=== PATIENT | female | born 1970 | race Two or more races ===

== ENCOUNTER 2016-09-03 07:00 | Inpatient (IN) | payer OTHER ==
--- NOTE | 2016-08-29 06:06 | PREOPHP ---
DATE OF ADMISSION: 09/03/[address] Pérez: HISTORY OF PRESENT ILLNESS: Thank you for asking me to see this pleasant 45-year-old woman who is c oming into the hospital for an anterior cervical disk surgery on 09/03/2016. The patient has had pr ogressive problems with pain, loss of range of motion, and discomfort in her neck as well as tinglin g in her arm. PAST MEDICAL HISTORY: Otherwise unremarkable. ALLERGIES: THERE NO ALLERGIES OTHER THAN INTOLERANCE OF MORPHINE. FAMILY HISTORY: The patient is with 4 grown children and 2 younger children. 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 PAST SURGICAL HISTORY: Includes only tubal ligation. HABITS: No cigarettes. No significant alcohol. REVIEW OF SYSTEMS: On questioning all pertinent review of systems are negative, except for the neck symptoms as noted above. GYNECOLOGIC HISTORY: Her periods are regular. Her last period was 2 weeks ago and as noted, she wallace d a tubal ligation. PHYSICAL EXAMINATION: GENERAL: She is a pleasant woman in no acute distress. She is 5 foot 3 inches tall, 143 pounds wit h a BMI of 25. VITAL SIGNS: Blood pressure 120/70, pulse is 64 and regular. She is afebrile. HEAD, EARS, EYES, NOSE, AND THROAT: No signs of trauma. Some pain on range of motion, especially l aterally of her neck. Ear, nose, and throat are unremarkable. NECK: Thyroid enlargement is appreciated. CHEST: Sounds clear to percussion and auscultation. HEART: Tones regular. No murmurs. ABDOMEN: Soft, without palpable mass or tenderness. EXTREMITIES: No clubbing, cyanosis, edema. Good peripheral pulses. All joints move well except fo r the neck. INITIAL IMPRESSION: Cervical disk disorder. DISCUSSION: At this time, there appear to be no medical contraindications to proceeding with surger y as planned. Laboratory reports, electrocardiogram, and chest x-ray are unremarkable. Electrolyte s are normal except for borderline potassium of 3.5. The patient will be called and instructed on i ncreasing her fruit intake. There are some nonspecific findings on her urinalysis with some blood, so there may be some local issues there. We can repeat the urinalysis as well. PT and PTT are norm al. Thank you for asking us to see her at this time. Dictated By: ERLIN WILLOUGHBY MD, SR/PIA Conf#: [id number] DID#: [id number]
[2016-08-30 17:01] VITALS: BMI 26.6; BMI 58.6
[~2016-09-03] VITALS: Ht 162.6 cm; Wt 71.0 kg
[2016-09-03] VITALS (25 sets, daily range): BP systolic 103–133; BP diastolic 51–83; PULSE 55–118; RESP 16–20; Ht 162.6 cm; Wt 71.0 kg
[~2016-09-03 07:00] MED LIST: CEFAZOLIN 1 GM INJ ONE; CEFAZOLIN 2 GM/50 ML (PMX) 50 ML IVPB SCH; LACTATED RINGER'S 1,000 ML IV* SCH; ONDANSETRON 4 MG INJ ONE
[2016-09-03] MEDS ORDERED: INHALER (09:10)
--- NOTE | 2016-09-03 10:36 | HPN ---
Date/Time of Note Date/Time of Note DATE: 09/03/16 TIME: 10:36 Interval H&P Admission Note Pt. seen H&P reviewed: No system changes KIRSTY MIRANDA MD September 03, 2016 10:36
[2016-09-03] MEDS ORDERED: MIDAZOLAM 1 MG/ML 2 ML INJ ONE (10:57)
[2016-09-03] MEDS ORDERED: ONDANSETRON 4 MG INJ IV PRN ×2 (11:00→12:30)
[2016-09-03] MEDS ORDERED: BISACODYL 10 MG SUPP PR PRN (11:00)
[2016-09-03] MEDS ORDERED: ZOLPIDEM 5 MG TAB PO PRN (11:00)
[2016-09-03] MEDS ORDERED: HYDROmorphONE 1 MG/ML SYG IV PRN (11:00)
[2016-09-03] MEDS ORDERED: HYDROmorphONE 0.2 MG/ML PCA IV SCH (11:00)
[2016-09-03] MEDS ORDERED: NALOXONE (0.4 MG/ML) INJ IV PRN (11:00)
[2016-09-03] MEDS ORDERED: AL HYDROX/MG HYDROX/SIMETH 30 ML CUP PO PRN (11:00)
[2016-09-03] MEDS ORDERED: DIPHENHYDRAMINE 50 MG INJ IV PRN ×2 (11:00→12:30)
[2016-09-03] MEDS ORDERED: HYDROCODONE/APAP (10/325) TAB PO PRN ×2 (11:00)
[2016-09-03] MEDS ORDERED: SURGIFOAM POWDER 1 GM KIT ONE (11:04)
[2016-09-03] MEDS ORDERED: THROMBIN 5000 UNIT VIAL ONE (11:05)
[2016-09-03] MEDS ORDERED: BUPIVACAINE 0.25%/EPI (SDV) 30 ML INJ ONE (11:05)
[2016-09-03] MEDS ORDERED: POLYMYXIN/BACITRACIN 1L IRRIG IRR ONE (11:23)
[2016-09-03] MEDS ORDERED: BUPIVACAINE 0.25%/EPI (SDV) 30 ML INJ INJ ONE (11:23)
[2016-09-03] MEDS ORDERED: THROMBIN 5000 UNIT VIAL TOP ONE (11:23)
[2016-09-03] MEDS ORDERED: MEPERIDINE 25 MG INJ IV PRN (12:30)
[2016-09-03] MEDS ORDERED: FENTAnyl 50 MCG/ML VIAL IV PRN (12:30)
[2016-09-03] MEDS ORDERED: LIDOCAINE 2% (SDV) 5 ML INJ ONE (13:08)
[2016-09-03] MEDS ORDERED: ROCURONIUM 50 MG INJ ONE (13:08)
[2016-09-03] MEDS ORDERED: NEOSTIGMINE 3 MG/3 ML SYRINGE ONE (13:08)
[2016-09-03] MEDS ORDERED: PROPOFOL 20 ML ONE (13:08)
[2016-09-03] MEDS ORDERED: GLYCOPYRROLATE 1 MG INJ ONE (13:08)
--- NOTE | 2016-09-03 13:32 | RADRPT ---
PROCEDURE: Intraoperative fluoroscopy. CLINICAL INDICATION: Intraoperative fluoroscopy during C5-6 decompression. TECHNIQUE: 5 spot intraoperative fluoroscopic images were provided. The images were reviewed on a high-resolution PACS workstation. COMPARISON: None available FINDINGS: Multiple spot intraoperative fluoroscopic views were provided during C5-6 decompression. The images demonstrate additional metallic probe at the level of C5-6. There is subsequent placement of cervi olesya discs replacement. The total fluoroscopy time was 37.9 seconds. IMPRESSION: 1. Multiple spot intraoperative fluoroscopic views during C5-6 decompression were provided. 2. Please see operative report of the same day for further information. RPTAT: HGAS .Jim Willoughby MD, Date Time Electronically viewed and signed by .Jim Willoughby MD, MD on 09/03/2016 13:32 .S/
[2016-09-03] MEDS: CEFAZOLIN 1 GM/50 ML (PMX) 50 ML IVPB SCH ×2 (14:48→23:23)
[2016-09-03] MEDS: D5W-0.45 NACL + KCL 20 MEQ 1,000 ML IV SCH ×2 (14:48→20:31)
[2016-09-03] MEDS ORDERED: VITAMIN A & D 5 GM OINT PACKET TOP ONE (16:04)
--- NOTE | 2016-09-03 18:19 | CONS ---
Date/Time of Note Date/Time of Note DATE: 09/03/16 TIME: 18:17 Assessment/Plan Assessment/Plan Problems: (1) Status post cervical spinal fusion Status: Acute Comment: The patient is resting comfortably after surgery. There does not appear to be any untoward effects or complications postoperatively. Will follow her along expectantly. Consultation Date/Type/Reason Admit Date/Time September 03, 2016 at 07:00 Initial Consult Date 09/03/2016 Type of Consultation: Internal medicine Reason for Consultation Postoperative assistance after cervical spine microdiscectomy Referring Provider: KIRSTY MIRANDA MD 24 HR Interval Summary Free Text/Dictation Patient reports she is doing well. She denies any shortness of breath fevers chills or sweats chest pain palpitations and specifically denies any upper extremity symptoms or lower extremity symptoms. Constitutional: no complaints Detailed Summary Respiratory: no complaints Cardiovascular: no complaints Gastrointestinal: no complaints Genitourinary: no complaints Neurologic: no complaints Exam/Review of Systems Vital Signs Vitals Vital Signs Date Time Temp Pulse Resp B/P Pulse Ox O2 Delivery O2 Flow Rate FiO2 09/03/16 17:25 68 121/68 100 Room Air 09/03/16 17:01 16 09/03/16 14:40 97.9 Exam Constitutional: alert, oriented Respiratory: clear to auscultation, normal air movement Cardiovascular: nl pulses, regular rate and rhythm Gastrointestinal: nl liver, spleen, non-tender, soft Musculoskeletal: nl extremities to inspection Extremities: normal pulses Medications Medications Current Medications Lactated Ringer's 1,000 ml @ 20 mls/hr Q24H IV* ; Start 09/03/16 at 07:00; Stop 09/05/16 at 08:59 Potassium Chloride/Dextrose/ Sod Cl (D5-1/2ns + KCl 20 Meq) 1,000 ml @ 100 mls/ hr Q10H IV Last administered on 09/03/16t 14:48; Admin Dose 100 MLS/HR; Start 09/03/16 at 10:31 Acetaminophen/ Hydrocodone Bitart ([place] (10/325)) 1 tab Q4H PRN PO PAIN LEVEL 1-5; Start 09/03/16 at 11:00 Acetaminophen/ Hydrocodone Bitart ([place] (10/325)) 2 tab Q4H PRN PO PAIN LEVEL 6-10; Start 09/03/16 at 11:00 Hydromorphone HCl 0.2 mg 0.2 mg Q1H PRN IV BREAKTHROUGH PAIN; Start 09/03/16 at 11:00 Cefazolin Sodium (Ancef 1 Gm/50 ml (Pmx)) 50 ml @ 100 mls/hr Q8H IVPB Last administered on 09/03/16 14:48; Admin Dose 100 MLS/HR; Start 09/03/16 at 15:00 ; Stop 09/04/16 at 07:29 Ondansetron HCl (Zofran Inj) 4 mg Q6H PRN IV NAUSEA AND/OR VOMITING; Start at 11:00 Bisacodyl (Dulcolax Supp) 10 mg DAILY PRN [place] CONSTIPATION; Start 09/03/16 at 11 :00 Docusate Sodium (Colace) 100 mg BID PO ; Start 09/03/16 at 21:00 Al Hydrox/Mg Hydrox/Simethicone (Mag-Al Plus) 15 ml Q6H PRN PO CONSTIPATION/ DYSPEPSIA; Start 09/03/16 at 11:00 Acetaminophen (Tylenol Tab) 650 mg Q4H PRN PO MODI OR TEMP GREATER THAN 101.3F; Start 09/03/16 at 11:00 Cyclobenzaprine HCl (Flexeril) 10 mg TID PRN PO MUSCLE SPASMS; Start 09/03/16 at 11:00 Phenol (Cepastat Lozenge) 1 lozenge PRN PRN MT SORE THROAT; Start 09/03/16 at 11:00 Diphenhydramine HCl (Benadryl) 25 mg Q6H PRN IV ITCHING; Start 09/03/16 at 11: 00 Naloxone HCl (Narcan) 0.2 mg Q2M PRN IV RR 8 BREATHS/MIN OR LESS; Start at 11:00 Hydromorphone HCl (Dilaudid DISH UP PERSON) DISH UP PERSON to be started in PACU Q4PCA IV Last administered on 09/03/16 13:31; Admin Dose 6 MG; Start 09/03/16 at 11:00; Stop 09/04/16 at 10:00 Miscellaneous Information 1. Hold DISH UP PERSON at 1,000... DISH UP PERSON IV ; Start 09/03/16 at 11: 00 OMAR SMITH MD September 03, 2016 18:19
[2016-09-03] MEDS: DOCUSATE SODIUM 100 MG CAP PO SCH (21:08)
[2016-09-03] MEDS: CYCLOBENZAPRINE 10 MG TAB PO PRN (21:08)
[2016-09-03] MEDS: CEPASTAT LOZENGE MT PRN (21:08)
[2016-09-03] MEDS ORDERED: HYDROmorphONE 1 MG/ML SYG IV STA (23:09)
--- NOTE | 2016-09-03 23:58 | EN ---
Date/Time of Note Date/Time of Note DATE: 09/03/16 TIME: 23:58 Event Note Medicine Medicine Event Note COILER OPERATOR called at approximately 22: 50. Patient seen and examined at the bedside. As per the nurse patient was using the bathroom and upon going from seated to standing position from the toilet patient began to become unstable and dizzy with her head and neck leaning back. Patient was brought to the bed. Her vital signs remained stable. Patient was on Dilaudid CORE INSPECTOR as well as she did receive Flexeril as well. She was not wearing her neck collar going to the bathroom. Upon arrival of the COILER OPERATOR team which included myself patient was seen laying in bed. Patient was arousable to verbal and vigorous tactile stimuli. Through the course of the COILER OPERATOR she was able to be more alert and be able to respond to her questions. She did state that she was in a lot of pain. The patient was able to move her bilateral upper and lower extremities and she did not experience or display any loss of sensation. Patient had undergone cervical neck surgery earlier in the day. To the course the COILER OPERATOR patient was able to communicate better and was more awake and alert. Likely her symptoms were secondary to Dilaudid and the muscle relaxant. She remained alert and oriented 3 and answering questions appropriately. CAT scan of the cervical cervical region of the neck was ordered to assess for any damage or misalignment of of her neck. Case was discussed with the nurse and nurse was to follow-up with the primary care doctor as well as the orthopedic surgeon once the results of the CAT scan of the abdomen came through. Patient's symptoms of dizziness likely are thought to be contributed to her narcotic medication as well as muscle relaxant. Of note patient's sodium was 165. The hydraulic rock drill operator was contacted regarding this value. At the current time no adjustments were recommended to be made to the IV fluids. DORA VILLANUEVA September 03, 2016 23:58
--- NOTE | 2016-09-04 01:36 | RADRPT ---
PROCEDURE: CT Cervical Spine without contrast. CLINICAL INDICATION: Neck pain, status post recent cervical spine surgery. TECHNIQUE: A CT of the cervical spine was performed without intravenous contrast. Coronal and sag ittal reformats were generated. CTDIvol: 22.41 mGy. DLP: 674.91 mGy-cm. One or more of the following dose reduction techniques were used: - Automated exposure control. - Adjustment of the mA and/or kV according to patient size. - Use of iterative reconstruction technique. COMPARISON: None. FINDINGS: There is a normal cervical lordosis. No spondylolisthesis is seen. The patient status post C5-C6 di scectomy. The disk prosthesis is in normal position. The vertebral body heights are maintained. No fracture or subluxation is seen. There is a 0.7 x 2.7 x 5.9 cm (AP by TR by CC) prevertebral fluid collection extending from the C2-C5 levels. There is a small to moderate amount of soft tissue air in the left neck. There is no significant degenerative change. No spinal canal stenosis or neural foraminal narrowing is seen. IMPRESSION: 1. Status post C5-C6 discectomy. There is anatomic alignment of the cervical spine and disk prosthe sis. 2. 0.7 x 2.7 x 5.9 cm prevertebral fluid collection extending from the C2-C5 levels. This probably represents benign postoperative fluid, however an abscess cannot be completely excluded. If there is concern for postoperative abscess, further evaluation with contrast enhanced neck MRI is recommende d. 3. Small to moderate amount of soft tissue air in the left neck, also likely postoperative. RPTAT: HTAR .Patrice Lelbanc MD, Date Time Electronically viewed and signed by .Patrice Leblanc MD, on 09/04/2016 01:36 .R/
[2016-09-04] MEDS: D5W-0.45 NACL + KCL 20 MEQ 1,000 ML IV SCH ×4 (02:04→23:15)
[2016-09-04 04:57] LABS: ADD SCAN DIFF NO
[2016-09-04 05:05] LABS: BASOPHILS % 0.2 % (0.0-2.0); EOSINOPHILS % 0.2 % (0.0-7.0); HEMATOCRIT 35.4 % (37.0-47.0); LYMPHOCYTES # 1.9 10^3/ul (0.8-2.9); LYMPHOCYTES % 15.6 % (15.0-51.0); MEAN CORPUSCULAR HEMOGLOBIN 28.6 pg (29.0-33.0); MEAN CORPUSCULAR HGB CONC 33.9 g/dl (32.0-37.0); MEAN CORPUSCULAR VOLUME 84.5 fl (82.0-101.0); MEAN PLATELET VOLUME 9.8 fl (7.4-10.4); MONOCYTE # 0.7 10^3/ul (0.3-0.9); MONOCYTES % 5.7 % (0.0-11.0); NEUTROPHIL # 9.5 10^3/ul (1.6-7.5); NEUTROPHILS % 77.9 % (39.0-77.0); PLATELET COUNT 237 10^3/UL (140-415); RED BLOOD COUNT 4.19 10^6/ul (4.20-5.40); WHITE BLOOD COUNT 12.2 10^3/ul (4.8-10.8)
[2016-09-04 05:46] LABS: CREATININE 0.6 mg/dl (0.44-1.00)
[2016-09-04 05:47] LABS: CALCIUM 8.2 mg/dl (8.4-10.2)
[2016-09-04 05:48] LABS: MAGNESIUM 1.7 mg/dl (1.7-2.5)
[2016-09-04] MEDS: CEFAZOLIN 1 GM/50 ML (PMX) 50 ML IVPB SCH (06:10)
[2016-09-04 08:00] VITALS: BP 118/56; RESP 18
--- NOTE | 2016-09-04 08:27 | PN ---
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 machine operator vs ok this am, labs ok lungs clear, hr ok, lower ext strength normal repeat labs in am, further rx per ortho Exam/Review of Systems Vital Signs Vitals Vital Signs Date Time Temp Pulse Resp B/P Pulse Ox O2 Delivery O2 Flow Rate FiO2 09/04/16 08:00 98.6 68 18 118/56 98 09/03/16 23:24 Nasal Cannula Intake and Output 09/03/16 09/03/16 09/04/16 15:00 23:00 07:00 Intake Total 900 ml 320 ml 1290 ml Output Total 25 ml 2400 ml Balance 875 ml 320 ml -1110 ml Results Result Diagram: 09/04/16 0430 09/04/16 0430 Results 24 hrs Laboratory Tests Test 09/03/16 22:57 09/04/16 04:30 Bedside Glucose 137 White Blood Count 12.2 H Red Blood Count 4.19 L Hemoglobin 12.0 Hematocrit 35.4 L Mean Corpuscular Volume 84.5 Mean Corpuscular Hemoglobin 28.6 L Mean Corpuscular Hemoglobin Concent 33.9 Red Cell Distribution Width 13.0 Platelet Count 237 Mean Platelet Volume 9.8 Neutrophils % 77.9 H Lymphocytes % 15.6 Monocytes % 5.7 Eosinophils % 0.2 Basophils % 0.2 Nucleated Red Blood Cells % 0.0 Neutrophils # 9.5 H Lymphocytes # 1.9 Monocytes # 0.7 Eosinophils # 0.0 Basophils # 0.0 Nucleated Red Blood Cells # 0.0 Sodium Level 139 Potassium Level 4.0 Chloride Level 110 Carbon Dioxide Level 26 Anion Gap 7 L Blood Urea Nitrogen 9 Creatinine 0.60 Glucose Level 120 Calcium Level 8.2 L Magnesium Level 1.7 Medications Medications Current Medications Lactated Ringer's 1,000 ml @ 20 mls/hr Q24H IV* ; Start 09/03/16 at 07:00; Stop 09/05/16 at 08:59 Potassium Chloride/Dextrose/ Sod Cl (D5-1/2ns + KCl 20 Meq) 1,000 ml @ 100 mls/ hr Q10H IV Last administered on 09/04/16 02:04; Admin Dose 100 MLS/HR; Start 09/03/16 at 10:31 Acetaminophen/ Hydrocodone Bitart ([place] (10/325)) 1 tab Q4H PRN PO PAIN LEVEL 1-5; Start 09/03/16 at 11:00 Acetaminophen/ Hydrocodone Bitart ([place] (10/325)) 2 tab Q4H PRN PO PAIN LEVEL 6-10; Start 09/03/16 at 11:00 Hydromorphone HCl (Dilaudid) 0.2 mg Q1H PRN IV BREAKTHROUGH PAIN; Start at 11:00 Ondansetron HCl (Zofran Inj) 4 mg Q6H PRN IV NAUSEA AND/OR VOMITING; Start at 11:00 Bisacodyl (Dulcolax Supp) 10 mg DAILY PRN [place] CONSTIPATION; Start 09/03/16 at 11 :00 Docusate Sodium (Colace) 100 mg BID PO Last administered on 09/03/16 21:08; Admin Dose 100 MG; Start 09/03/16 at 21:00 Al Hydrox/Mg Hydrox/Simethicone (Mag-Al Plus) 15 ml Q6H PRN PO CONSTIPATION/ DYSPEPSIA; Start 09/03/16 at 11:00 Acetaminophen (Tylenol Tab) 650 mg Q4H PRN PO MODI OR TEMP GREATER THAN 101.3F; Start 09/03/16 at 11:00 Cyclobenzaprine HCl (Flexeril) 10 mg TID PRN PO MUSCLE SPASMS Last administered on 09/03/16 21:08; Admin Dose 10 MG; Start 09/03/16 at 11:00 Phenol (Cepastat Lozenge) 1 lozenge PRN PRN MT SORE THROAT Last administered on 09/03/16 21:08; Admin Dose 1 LOZENGE; Start 09/03/16 at 11:00 Diphenhydramine HCl (Benadryl) 25 mg Q6H PRN IV ITCHING; Start 09/03/16 at 11: 00 Naloxone HCl (Narcan) 0.2 mg Q2M PRN IV RR 8 BREATHS/MIN OR LESS; Start at 11:00 Hydromorphone HCl (Dilaudid DOLL MAKER) DOLL MAKER to be started in PACU Q4PCA IV Last administered on 09/03/16t 13:31; Admin Dose 6 MG; Start 09/03/16 at 11:00; Stop 09/04/16 at 10:00 Miscellaneous Information 1. Hold DOLL MAKER at 1,000... DOLL MAKER IV ; Start 09/03/16 at 11: 00 ERLIN WILLOUGHBY MD September 04, 2016 08:27
[2016-09-04 08:40] VITALS: BP 84/51; PULSE 72; RESP 16
[2016-09-04 08:45] VITALS: BP 105/58; PULSE 54; RESP 16
[2016-09-04 09:00] VITALS: BP 122/60; PULSE 56; RESP 16
[2016-09-04] MEDS: DOCUSATE SODIUM 100 MG CAP PO SCH ×2 (09:00→20:22)
[2016-09-04 09:15] VITALS: BP 125/62; PULSE 70; RESP 16
--- NOTE | 2016-09-04 09:46 | PN ---
LISA GROSSMAN PA-C 09/04/16 0946: Date/Time of Note Date/Time of Note DATE: 09/04/16 TIME: 09:44 Assessment/Plan Lines/Catheters IV Catheter Type (from Nrs): Peripheral IV [place] in Place (from Nrs): No Assessment/Plan Assessment/Plan s/p cervical disc replacement encourage PO intake continue PT watch BP, orthostatic BP Subjective 24 Hr Interval Summary pt had 2x vasovagal episodes c/o dizziness Exam/Review of Systems Vital Signs Vitals Vital Signs Date Time Temp Pulse Resp B/P Pulse Ox O2 Delivery O2 Flow Rate FiO2 09/04/16 08:00 98.6 68 18 118/56 98 09/03/16 23:24 Nasal Cannula Intake and Output 09/03/16 09/03/16 09/04/16 15:00 23:00 07:00 Intake Total 900 ml 320 ml 1290 ml Output Total 25 ml 2400 ml Balance 875 ml 320 ml -1110 ml Exam Free Text/Dictation NVID incision C/D/I AOx3 CT C-spine showed no fractures Results Result Diagram: 09/04/1642909/04/16429 KIRSTY MIRANDA MD 09/04/16 0952: Assessment/Plan Assessment/Plan Assessment/Plan the patient's fluids were decreased overnight to 60, I will bolus NS and increased her fluids. RN will try to sit her up to see if she can tolerate PO. Exam/Review of Systems Vital Signs Vitals Vital Signs Date Time Temp Pulse Resp B/P Pulse Ox O2 Delivery O2 Flow Rate FiO2 09/04/16 08:00 98.6 68 18 118/56 98 09/03/16 23:24 Nasal Cannula Intake and Output 09/03/16 09/03/16 09/04/16 15:00 23:00 07:00 Intake Total 900 ml 320 ml 1290 ml Output Total 25 ml 2400 ml Balance 875 ml 320 ml -1110 ml Results Result Diagram: 09/04/1642909/04/160 LISA GROSSMAN PA-C September 04, 2016 09:46 KIRSTY MIRANDA MD September 04, 2016 09:52
[2016-09-04] MEDS: ACETAMINOPHEN 325 MG TAB PO PRN (20:25)
[2016-09-04] MEDS: CEPASTAT LOZENGE MT PRN (20:26)
[2016-09-04 20:41] VITALS: BP 124/72; RESP 20
[2016-09-04] MEDS: CYCLOBENZAPRINE 10 MG TAB PO PRN (22:49)
[2016-09-05] MEDS: D5W-0.45 NACL + KCL 20 MEQ 1,000 ML IV SCH (02:31)
[2016-09-05 05:10] LABS: ADD SCAN DIFF NO
[2016-09-05 05:11] LABS: BASOPHILS % 0.3 % (0.0-2.0); EOSINOPHILS # 0.1 10^3/ul (0.0-0.5); EOSINOPHILS % 1.8 % (0.0-7.0); HEMATOCRIT 35.5 % (37.0-47.0); HEMOGLOBIN 11.7 g/dl (12.0-16.0); LYMPHOCYTES # 2.2 10^3/ul (0.8-2.9); LYMPHOCYTES % 31.3 % (15.0-51.0); MEAN CORPUSCULAR HEMOGLOBIN 28.5 pg (29.0-33.0); MEAN CORPUSCULAR VOLUME 86.6 fl (82.0-101.0); MEAN PLATELET VOLUME 9.7 fl (7.4-10.4); MONOCYTE # 0.5 10^3/ul (0.3-0.9); MONOCYTES % 7.2 % (0.0-11.0); NEUTROPHIL # 4.2 10^3/ul (1.6-7.5); NEUTROPHILS % 59.1 % (39.0-77.0); PLATELET COUNT 199 10^3/UL (140-415); RED CELL DISTRIBUTION WIDTH 13.2 % (11.5-14.5); WHITE BLOOD COUNT 7.1 10^3/ul (4.8-10.8)
[2016-09-05 05:39] LABS: CALCIUM 8.3 mg/dl (8.4-10.2); CREATININE 0.56 mg/dl (0.44-1.00); POTASSIUM 4.1 mmol/L (3.5-5.1)
[2016-09-05 08:34] VITALS: BP 127/76; RESP 18
[2016-09-05] MEDS: ACETAMINOPHEN 325 MG TAB PO PRN (09:26)
[2016-09-05] MEDS: DOCUSATE SODIUM 100 MG CAP PO SCH (09:26)
--- NOTE | 2016-09-05 11:21 | DS ---
DATE OF ADMISSION: 09/03/2016 DATE OF DISCHARGE: ADMITTING DIAGNOSIS: C5-6 disk herniation. DISCHARGE DIAGNOSIS: C5-6 disk herniation. PROCEDURE: The patient was taken to the operating room on 09/03/2016 and underwent cervical disk re placement. HOSPITAL COURSE: The patient was admitted to the [facility] after undergoing the above procedu re. The evening of surgery she had a vasovagal episode where she fell down. A CAT scan was obtaine d without any evidence of acute fracture. The next day, fluids were given to her and by postoperati ve day 2, she was doing well and deemed stable for discharge with followup arranged with the [facility]. Dictated By: KIRSTY NESS/PIA Conf#: [id number] DID#: [id number]
--- NOTE | 2016-09-05 12:25 | PN ---
Date/Time of Note Date/Time of Note DATE: 09/05/16 TIME: 12:24 Assessment/Plan VTE Prophylaxis VTE Prophylaxis Intervention: ambulation Lines/Catheters IV Catheter Type (from Nrsg): Peripheral IV Urinary Cath still in place: No Subjective 24 Hr Interval Summary Free Text/Dictation much better sitting dup, ready for dc vs ok, labs stable will follow prn, return to usual care after dc Exam/Review of Systems Vital Signs Vitals Vital Signs Date Time Temp Pulse Resp B/P Pulse Ox O2 Delivery O2 Flow Rate FiO2 09/05/16 08:34 97.8 63 18 127/76 99 09/04/16 09:15 Nasal Cannula 2.0 Intake and Output 09/04/16 09/04/16 09/05/16 15:00 23:00 07:00 Intake Total 1100 ml 1500 ml Output Total 800 ml Balance 1100 ml 700 ml Results Result Diagram: 09/05/16 0408 09/05/16 0408 Results 24 hrs Laboratory Tests Test 09/05/16 04:08 White Blood Count 7.1 # Red Blood Count 4.10 L Hemoglobin 11.7 L Hematocrit 35.5 L Mean Corpuscular Volume 86.6 Mean Corpuscular Hemoglobin 28.5 L Mean Corpuscular Hemoglobin Concent 33.0 Red Cell Distribution Width 13.2 Platelet Count 199 Mean Platelet Volume 9.7 Neutrophils % 59.1 Lymphocytes % 31.3 Monocytes % 7.2 Eosinophils % 1.8 Basophils % 0.3 Nucleated Red Blood Cells % 0.0 Neutrophils # 4.2 Lymphocytes # 2.2 Monocytes # 0.5 Eosinophils # 0.1 Basophils # 0.0 Nucleated Red Blood Cells # 0.0 Sodium Level 142 Potassium Level 4.1 Chloride Level 115 H Carbon Dioxide Level 26 Anion Gap 5 L Blood Urea Nitrogen 8 Creatinine 0.56 Glucose Level 105 Calcium Level 8.3 L Medications Medications Current Medications Potassium Chloride/Dextrose/ Sod Cl (D5-1/2ns + KCl 20 Meq) 1,000 ml @ 100 mls/ hr Q10H IV Last administered on 09/04/16t 23:15; Admin Dose 100 MLS/HR; Start 09/03/16 at 10:31 Acetaminophen/ Hydrocodone Bitart ([place] (10325)) 1 tab Q4H PRN PO PAIN LEVEL 1-5; Start 09/03/16 at 11:00 Acetaminophen/ Hydrocodone Bitart ([place] (10/325)) 2 tab Q4H PRN PO PAIN LEVEL 6-10; Start 09/03/16 at 11:00 Hydromorphone HCl (Dilaudid) 0.2 mg Q1H PRN IV BREAKTHROUGH PAIN; Start at 11:00 Ondansetron HCl (Zofran Inj) 4 mg Q6H PRN IV NAUSEA AND/OR VOMITING; Start at 11:00 Bisacodyl (Dulcolax Supp) 10 mg DAILY PRN [place] CONSTIPATION; Start 09/03/16 at 11 :00 Docusate Sodium (Colace) 100 mg BID PO Last administered on 09/05/16 09:26; Admin Dose 100 MG; Start 09/03/16 at 21:00 Al Hydrox/Mg Hydrox/Simethicone (Mag-Al Plus) 15 ml Q6H PRN PO CONSTIPATION/ DYSPEPSIA; Start 09/03/16 at 11:00 Acetaminophen (Tylenol Tab) 650 mg Q4H PRN PO MODI OR TEMP GREATER THAN 101.3F Last administered on 09/05/16 09:26; Admin Dose 650 MG; Start 09/03/16 at 11:00 Cyclobenzaprine HCl (Flexeril) 10 mg TID PRN PO MUSCLE SPASMS Last administered on 09/04/16 22:49; Admin Dose 10 MG; Start 09/03/16 at 11:00 Phenol (Cepastat Lozenge) 1 lozenge PRN PRN MT SORE THROAT Last administered on 09/04/16 20:26; Admin Dose 1 LOZENGE; Start 09/03/16 at 11:00 Diphenhydramine HCl (Benadryl) 25 mg Q6H PRN IV ITCHING; Start 09/03/16 at 11: 00 Naloxone HCl (Narcan) 0.2 mg Q2M PRN IV RR 8 BREATHS/MIN OR LESS; Start at 11:00 Miscellaneous Information 1. Hold DIRECTOR OF CONTENT MARKETING at 1,000... DIRECTOR OF CONTENT MARKETING IV ; Start 09/03/16 at 11: 00 ERLIN WILLOUGHBY MD Sep 05, 2016 12:25
--- NOTE | 2016-09-05 17:41 | RADRPT ---
Vent Rate: 60 bpm RR Interval: 0 msec [place] Interval: 134 msec QRS Duration: 86 msec QT Interval: 430 msec QTC Interval: 430 msec P-R-T [place]: 58 - 44 - 38 degrees Normal sinus rhythm Normal ECG Electronically Signed By: Rishabh Singh [id number]
== END 2016-09-05 12:39 | disposition home or self-care (01) | DRG 518 ==
LOC: REC 07:00 → MS1 14:34
PROVIDERS: ADMIT Specialist; ATTEND Specialist
PROC: 4A11X4G Monitoring of Peripheral Nervous Electrical Activity, Intraoperative, External Approach (ICD-10-PCS; 2016-09-03)
PROC: 0RR30JZ Replacement of Cervical Vertebral Disc with Synthetic Substitute, Open Approach (ICD-10-PCS; principal; 2016-09-03 10:00)
DX: M50.022 Cervical disc disorder at C5-C6 level with myelopathy (principal); R55 Syncope and collapse; R42 Dizziness and giddiness
CPT/HCPCS: 72110; 72125; 80048; 82962; 83735; 84703; 85025; 93005; 97110; 97116; 97162; 97530; J0690; J1170; J2175; J2250; J2310; J2405; J2710; J3010; J3480; J7120